=== PATIENT | male | born 1960 | race Two or more races ===

== ENCOUNTER 2017-09-03 09:23 | Emergency (ER) | payer SELFPAY ==
[2017-09-03] MEDS ORDERED: LIDOCAINE 1% MPF 5 ML VIAL ONE (09:44)
[2017-09-03] MEDS ORDERED: TETANUS & DIPHTHERIA TOX,ADULT 0.5 ML VIAL ONE (09:54)
--- NOTE | 2017-09-03 10:07 | EDPHYS ---
Physician Documentation [facility] Name: Shiela Vega Age: 57 yrs Sex: Male : 1960 Arrival Date: 09/03/2017 Time: 09:24 Bed 16 Private MD: ED Physician Marco Mills HPI: 09/03 09:55 This 57 yrs old Male presents to ER via Ambulatory with complaints of Fish Hook in Neck.jr8 09:55 Onset: The symptoms/episode began/occurred acutely, today. Associated signs and jr8 symptoms: The patient has no apparent associated signs or symptoms. Modifying factors: The patient symptoms are alleviated by nothing, the patient symptoms are aggravated by movement. The patient has not experienced similar symptoms in the past. The patient has not recently seen a physician. Accidently was hooked with fish hook on right side of neck . Historical: - Allergies: 09:43 NKA; iw - PMHx: 09:43 Diabetes - NIDDM; iw - PSHx: 09:43 None; iw - Immunization history:: Adult Immunizations not up to date. - Social history:: Smoking status: Patient uses tobacco products. ROS: 09:55 Eyes: Negative for injury, pain, redness, and discharge, ENT: Negative for injury, jr8 pain, and discharge, Neck: Negative for injury, pain, and swelling, Cardiovascular: Negative for chest pain, palpitations, and edema, Respiratory: Negative for shortness of breath, cough, wheezing, and pleuritic chest pain, Abdomen/GI: Negative for abdominal pain, nausea, vomiting, diarrhea, and constipation, Back: Negative for injury and pain, MS/Extremity: Negative for injury and deformity, Neuro: Negative for headache, weakness, numbness, tingling, and seizure. 09:55 Skin: Positive for puncture, of the neck. Exam: 09:55 Head/Face: Normocephalic, atraumatic. Eyes: Pupils equal round and reactive to light, jr8 extra-ocular motions intact. Lids and lashes normal. Conjunctiva and sclera are non-icteric and not injected. Cornea within normal limits. Periorbital areas with no swelling, redness, or edema. ENT: Nares patent. No nasal discharge, no septal abnormalities noted. Tympanic membranes are normal and external auditory canals are clear. Oropharynx with no redness, swelling, or masses, exudates, or evidence of obstruction, uvula midline. Mucous membranes moist. Cardiovascular: Regular rate and rhythm with a normal S1 and S2. No gallops, murmurs, or rubs. Normal PMI, no JVD. No pulse deficits. Respiratory: Lungs have equal breath sounds bilaterally, clear to auscultation and percussion. No rales, rhonchi or wheezes noted. No increased work of breathing, no retractions or nasal flaring. Abdomen/GI: Soft, non-tender, with normal bowel sounds. No distension or tympany. No guarding or rebound. No evidence of tenderness throughout. Back: No spinal tenderness. No costovertebral tenderness. Full range of motion. Skin: Warm, dry with normal turgor. Normal color with no rashes, no lesions, and no evidence of cellulitis. MS/ Extremity: Pulses equal, no cyanosis. Neurovascular intact. Full, normal range of motion. Neuro: Awake and alert, GCS 15, oriented to person, place, time, and situation. Cranial nerves II-XII grossly intact. Motor strength 5/5 in all extremities. Sensory grossly intact. Cerebellar exam normal. Normal gait. 09:55 Neck: External neck: small single barbed fish hook noted to right anterior/lateral aspect of neck. No bleeding. Upon manipulation hook superficial. Just under dermal layer . Vital Signs: 09:44 BP 141 / 91; Pulse 75; Resp 16; Temp 98.2; Pulse Ox 97% on R/A; Weight 86.18 kg; Height iw 5 ft. 10 in. (177.80 cm); Pain 4/10; 09:44 Body Mass Index 27.26 (86.18 kg, 177.80 cm) iw Procedures: 09:55 Foreign Body Removal: a fishhook, from the right neck, by pull threw with wire cutters. jr8 The patient tolerated the removal well. MDM: 09:34 Patient medically screened. jr8 09:55 Data reviewed: vital signs, nurses notes, and as a result, I will discharge patient. jr8 Data interpreted: Pulse oximetry: on room air is 97 %. Interpretation: normal. Counseling: I had a detailed discussion with the patient and/or guardian regarding: the historical points, exam findings, and any diagnostic results supporting the discharge/admit diagnosis, the need for outpatient follow up, a family practitioner, to return to the emergency department if symptoms worsen or persist or if there are any questions or concerns that arise at home. Administered Medications: 09:40 Drug: Lidocaine (1 %) 5 mg {Note: Administered by JARED Arreaga.} Route: Infiltration;ae1 10:17 Follow up: Response: No adverse reaction ae1 09:59 Drug: Tetanus-Diphtheria Toxoid Adult 0.5 ml {Vice President Pharmacy: [facility]. Exp: ae1 09/15/2019. Lot #: [id number]. } Route: IM; Site: left deltoid; 10:17 Follow up: Response: No adverse reaction ae1 Disposition: 18:58 Co-signature as Attending Physician, Marco Mills MD. Disposition: 09/03/17 10:06 Discharged to Home. Impression: Puncture wound with foreign body of unspecified part of neck - fish hook. - Condition is Stable. - Discharge Instructions: Fish Hook Removal. - Prescriptions for Keflex 500 mg Oral Capsule - take 1 capsule by ORAL route every 8 hours for 5 days; 15 capsule. - Medication Reconciliation Form, Thank You Letter, Antibiotic Education, Prescription Opioid Use form. - Follow up: Private Physician; When: 2 - 3 days; Reason: Wound Recheck, Recheck today's complaints, Continuance of care, Re-evaluation by your physician. - Problem is new. - Symptoms have improved. Signatures: Jennie Suárez RN RN Haider Weber PA PA jr8 Rajesh Holbrook RN RN ae1 Marco Mills MD MD Corrections: (The following items were deleted from the chart) 09:44 09:43 Social history: Smoking status: [facility]
--- NOTE | 2017-09-03 10:07 | ER ---
Nurse's Notes [facility] Name: Shiela Vega Age: 57 yrs Sex: Male : 1960 Arrival Date: 09/03/2017 Time: 09:24 Bed 16 Private MD: Diagnosis: Puncture wound with foreign body of unspecified part of neck-fish hook Presentation: 09/03 09:40 Presenting complaint: Friend states: got fish hook stuck in skin neck about 20 minutes iw ago while fishing. Transition of care: patient was not received from another setting of care. Onset of symptoms was September 03, 2017. Initial Sepsis Screen: Does the patient meet any 2 criteria? No. Patient's initial sepsis screen is negative. Does the patient have a suspected source of infection? No. Patient's initial sepsis screen is negative. Care prior to arrival: None. 09:40 Method Of Arrival: Ambulatory iw 09:40 Acuity: RENÉE 4 iw Historical: - Allergies: 09:43 NKA; iw - PMHx: 09:43 Diabetes - NIDDM; iw - PSHx: 09:43 None; iw - Immunization history:: Adult Immunizations not up to date. - Social history:: Smoking status: Patient uses tobacco products. Screenin:06 Abuse screen: Denies injuries from another. Nutritional screening: No deficits noted. ae1 Tuberculosis screening: No symptoms or risk factors identified. Fall Risk None identified. Assessment: 10:03 General: Appears in no apparent distress. uncomfortable, Behavior is cooperative, ae1 anxious. Pain: Complains of pain in right sternocleidomastoid. Pain: Complains of pain in right sternocleidomastoid. Neuro: Level of Consciousness is awake, alert, obeys commands, Oriented to person, place, time, situation. Cardiovascular: Patient's skin is warm and dry. Respiratory: Airway is patent Respiratory effort is even, unlabored, Respiratory pattern is regular, symmetrical. GI: No signs and/or symptoms were reported involving the gastrointestinal system. GI: No signs and/or symptoms were reported involving the gastrointestinal system. : No signs and/or symptoms were reported regarding the genitourinary system. EENT: No signs and/or symptoms were reported regarding the EENT system. Derm: Metal hook puncturing right neck superficially. No bleeding noted. Musculoskeletal: No signs and/or symptoms reported regarding the musculoskeletal system. No swelling noted at site of fish hook insertion. Injury Description: Puncture. 10:18 Reassessment: Patient appears in no apparent distress at this time. Patient states ae1 feeling better. Vital Signs: 09:44 BP 141 / 91; Pulse 75; Resp 16; Temp 98.2; Pulse Ox 97% on R/A; Weight 86.18 kg; Height iw 5 ft. 10 in. (177.80 cm); Pain 4/10; 09:44 Body Mass Index 27.26 (86.18 kg, 177.80 cm) iw ED Course: 09:24 Patient arrived in ED. mr 09:34 Haider Weber PA is PHCP. jr8 09:34 Marco Mills MD is Attending Physician. jr8 09:43 Triage completed. iw 09:44 Arm band placed on. iw 09:51 Assist provider with foreign body removal of a fish hook from neck Set up for iw procedure. Performed by Haider COLEMAN Dressed with 4X4s, Patient tolerated well. 09:52 Rajesh Holbrook RN is Primary Nurse. ae1 10:06 Bed in low position. Call light in reach. Side rails up X 1. Adult w/ patient. Pulse ox ae1 on. NIBP on. 10:18 Patient did not have IV access during this emergency room visit. ae1 Administered Medications: 09:40 Drug: Lidocaine (1 %) 5 mg {Note: Administered by JARED Arreaga.} Route: Infiltration;ae1 10:17 Follow up: Response: No adverse reaction ae1 09:59 Drug: Tetanus-Diphtheria Toxoid Adult 0.5 ml {Seat Mender: [employer]. Exp: ae1 09/15/2019. Lot #: [id number]. } Route: IM; Site: left deltoid; 10:17 Follow up: Response: No adverse reaction ae1 Outcome: 10:06 Discharge ordered by . yin 10:18 Discharged to home ambulatory, with friend. ae1 10:18 Condition: stable 10:18 Discharge instructions given to patient, friend, Instructed on discharge instructions, follow up and referral plans. medication usage, Demonstrated understanding of instructions, Prescriptions given X 1. 10:18 Patient left the ED. ae1 Signatures: Becki De La Cruz mr Jennie Suárez RN RN Haider Weber PA PA jr8 Elliott, Rajesh, RN RN ae1 Corrections: (The following items were deleted from the chart) 09:44 09:43 Social history: Smoking status: iw iw
== END 2017-09-03 10:18 | disposition home or self-care (01) ==
LOC: ER 09:23
DX: S11.94XA Puncture wound with foreign body of unspecified part of neck, initial encounter (principal); Z72.0 Tobacco use; Z23 Encounter for immunization
CPT/HCPCS: 90714; 99284